=== PATIENT | male | born 1980 | race Caucasian/White ===

== ENCOUNTER 2017-02-20 08:04 | Day surgery (SDC) | payer MEDICARE ==
[~2017-02-20 08:04] MED LIST: DIPRIVAN 200 MG/20 ML IV ONE; Lactated Ringers 1,000 ML IV ONE
[2017-02-20] MEDS ORDERED: Sodium Chloride 0.9(Preservative Free) 10 ML IJ ONE (09:00)
[2017-02-20] MEDS ORDERED: Sensorcaine 0.25% 10 ML IJ ONE (09:00)
[2017-02-20] MEDS ORDERED: Depo-Medrol 40 MG/ML IM ONE (09:00)
--- NOTE | 2017-02-20 17:29 | XRAY ---
13 seconds fluoroscopy time in surgery for caudal BYRON.
--- NOTE | 2017-02-22 02:21 | XRAY ---
Indication: Caudal epidural steroid injection. Intraoperative fluoroscopy was provided for 13 seconds. 2 lateral digital spot films of the mid aspect of the sacrum were obtained. There appears to be injection of some contrast material posterior to the inferior to midportion of the sacrum. Correlate with intraoperative findings/report.
== END 2017-02-20 10:40 | disposition home or self-care (01) ==
LOC: SDC-PAIN 08:04
PROVIDERS: ATTEND Pain Medicine Interventional Pain Medicine
DX: M54.5 Low back pain (principal); M54.16 Radiculopathy, lumbar region; M51.36 Other intervertebral disc degeneration, lumbar region; Z79.891 Long term (current) use of opiate analgesic
CPT/HCPCS: 01992; 62323; 72020; 77003; J1030; J2704